=== PATIENT | female | born 1980 ===

== ENCOUNTER 2019-01-26 08:24 | Outpatient (CLI) | payer OTHER ==
[2019-01-26 09:59] LABS: Hematocrit 48.1 % (30.3-42.9); Hemoglobin 16.3 gm/dl (10.1-14.3); Mean Corpuscular HGB Conc 34 % (30-34); Mean Corpuscular Volume 91 fl (79-97); Red Blood Count 5.28 M/mm3 (3.65-5.03); Red Cell Distribution Width 13.9 % (13.2-15.2)
[2019-01-26 10:15] LABS: Alanine Aminotransferase 22 units/L (7-56); Albumin 4.6 g/dL (3.9-5); BUN/Creatinine Ratio 13; Blood Urea Nitrogen 12 mg/dL (7-17); Calcium 9.8 mg/dL (8.4-10.2); Hemolysis Index 9; LDL Cholesterol,Direct 127 mg/dL (50-130)
[2019-01-26 10:32] LABS: Chol/HDL Ratio 2.87 %; HDL Cholesterol 40 mg/dL (40-59)
[2019-01-26 13:36] LABS: Platelet Count 156 K/mm3 (140-440)
[2019-01-29 12:57] LABS: Vitamin D, 25-OH, D2 <4 ng/mL
== END 2019-01-26 08:25 | disposition home or self-care (01) ==
LOC: LAB 08:24
PROVIDERS: ATTEND Internal Medicine
DX: Z13.1 Encounter for screening for diabetes mellitus (principal); Z13.21 Encounter for screening for nutritional disorder; E78.5 Hyperlipidemia, unspecified
CPT/HCPCS: 36415; 80053; 80061; 82306; 82607; 83036; 84443; 85027